=== PATIENT | male | born 1970 | race Caucasian/White ===

== ENCOUNTER 2021-06-07 20:07 | Emergency (ER) | payer SELFPAY ==
[2021-06-07] MEDS ORDERED: cefTRIAXone 2 GM in Sodium Chloride 0.9% 100 ML IV ONE (20:45)
[2021-06-07 20:52] LABS: BASE EXCESS ARTERIAL -10 mmol/L ((-2)-(+3)); BICARBONATE,ARTERIAL 19.4 mmol/L (22-26); O2 DELIVERY DEVICE NON REBR MASK; O2 SATURATION ARTERIAL 91 % (95-100); PCO2 ARTERIAL 55 mmHg (35-45); PO2 ARTERIAL 77 mmHg (70-100)
[2021-06-07 20:54] LABS: ALLEN TEST PERFORMED
--- NOTE | 2021-06-07 20:58 | CR ---
PROCEDURE INFORMATION: Exam: XR Chest Exam date and time: 06/07/2021 8:30 PM Age: 51 years old Clinical indication: Shortness of breath; Additional info: Hypoxia, prob covid TECHNIQUE: Imaging protocol: XR of the chest. Views: 1 view. COMPARISON: No relevant prior studies available. FINDINGS: Lungs: See "Soft tissues" finding. Pleural spaces: Unremarkable. No pleural effusion. No pneumothorax. Heart/Mediastinum: Unremarkable. No cardiomegaly. Bones/joints: Unremarkable. Soft tissues: Habitus and portable technique limit exam. Bilateral airspace opacities noted. Hypoventilatory exam. Potential mass in the right mid lung zone. IMPRESSION: Limited exam. Question mass in the right mid lung zone. Additional evidence of pneumonia. CT recommended.
[2021-06-07 21:06] LABS: ANION GAP 18.3 mEq/L (7-13); CHLORIDE,CL 94 mmol/L (98-107); SODIUM,NA 131 mmol/L (136-145)
[2021-06-07] MEDS ORDERED: Sodium Chloride 0.9% 1,000 ML IV ONE (21:13)
[2021-06-07] MEDS ORDERED: Dexamethasone 4 MG/ML SDV IVPUSH ONE (21:15)
[2021-06-07] MEDS ORDERED: Morphine 2 MG/ML SYRINGE IVPUSH ONE ×3 (21:20→22:18)
[2021-06-07] MEDS ORDERED: LORazepam 2 MG/ML SDV ONE (21:29)
[2021-06-07] MEDS ORDERED: LORazepam 2 MG/ML SDV IVPUSH ONE (21:31)
[2021-06-07 22:00] LABS: BASE EXCESS ARTERIAL -8 mmol/L ((-2)-(+3)); BICARBONATE,ARTERIAL 20.4 mmol/L (22-26); O2 DELIVERY DEVICE CPAP; O2 SATURATION ARTERIAL 96 % (95-100); PCO2 ARTERIAL 52 mmHg (35-45); PO2 ARTERIAL 77 mmHg (70-100)
[2021-06-07 22:01] LABS: ALLEN TEST PERFORMED
--- NOTE | 2021-06-07 23:14 | CR ---
PROCEDURE INFORMATION: Exam: XR Chest Exam date and time: 06/07/2021 10:57 PM Age: 51 years old Clinical indication: Other: Tube placement; Additional info: Post intub TECHNIQUE: Imaging protocol: XR of the chest. Views: 1 view. COMPARISON: CR Chest 1V Frontal 06/07/2021 8:30 PM FINDINGS: Tubes, catheters and devices: Rotation. Tip of the endotracheal tube appears to terminate at the level of the clavicles, though technique limits exam. Gastric suction tube noted, but tip is not seen due to technique. Lungs: Patchy bilateral airspace disease and hypoventilation. Heart/Mediastinum: Heart appears enlarged. IMPRESSION: Limited exam. Endotracheal tube appears to terminate in good position at the level of the clavicles.
--- NOTE | 2021-06-08 04:07 | EDM.PDOC ---
ED HPI GENERAL MEDICAL PROBLEM - General Chief Complaint: Respiratory Problem Stated Complaint: BY AMBULANCE Time Seen by Provider: 06/07/21 20:10 Source of Information: Reports: Patient History Limitations: Reports: No Limitations - History of Present Illness INITIAL COMMENTS - FREE TEXT/NARRATIVE: ED via [facility] with c/o SOB. EMS noted initial oxygen saturation 50% RA at home. Patient ill x 2 weeks worse past 2 days. decreased appetite cough, weakness today, in bathroom unable to get off toilet. went down to floor, No injury, no c/o pain. tested positive for COVID today. Saturation improved NRB 80's decreases upper 70's with movement or conversation. Denied chest pain, No abdominal pain, No change in hernia - Related Data Allergies Allergy/AdvReac Type Severity Reaction Status Date / Time No Known Allergies Allergy Verified 06/07/21 20:13 Social & Family History - Tobacco Use Tobacco Use Status *Q: Never Tobacco User - Caffeine Use Caffeine Use: Reports: Coffee - Recreational Drug Use Recreational Drug Use: No ED ROS GENERAL - Review of Systems Review Of Systems: Comprehensive ROS is negative, except as noted in HPI. ED EXAM, GENERAL - Physical Exam Exam: See Below Exam Limited By: Physical Impairment (grossly morbidly obese) General Appearance: Alert, Severe Distress, Obese Eye Exam: Bilateral Eye: EOMI Ears: Normal External Exam, Hearing Grossly Normal Nose: Normal Inspection Throat/Mouth: Other (dry membranes). No: Normal Voice (soft) Head: Atraumatic, Normocephalic Neck: Normal Inspection Respiratory/Chest: Respiratory Distress, Decreased Breath Sounds (bases), Rhonchi. No: No Respiratory Distress Cardiovascular: Normal Peripheral Pulses, Regular Rate, Rhythm, Tachycardia GI/Abdominal: Hernia (Massive hernia left mid abdomen). No: Tender Extremities: Pedal Edema, Slow Capillary Refill Neurological: Alert, Normal Cognition Psychiatric: Anxious Skin Exam: Warm, Cool, Erythema (lower abdominal pannis), Wound/Incision (left hernia with abrasion) #1 Interpretation EKG Date: 06/07/21 Time: 20:38 Rhythm: Other (sinus tach) P-Wave: Present QRS: Normal Comparison: NA - No Prior EKG Course - Vital Signs Last Recorded V/S: Last Vital Signs Temp 97.6 F 06/07/21 22:29 Pulse 106 H 06/07/21 22:29 Resp 32 H 06/07/21 22:29 BP 122/66 06/07/21 22:29 Pulse Ox 94 L 06/07/21 22:29 - Orders/Labs/Meds Orders: Active Orders 24 hr Category Date Time Status CULTURE BLOOD [BC] Stat Lab 06/07/21 20:23 Received CULTURE BLOOD [BC] Stat Lab 06/07/21 20:25 Received Blood Culture x2 Reflex Set [OM.PC] Stat Oth 06/07/21 19:57 Ordered Code Status [Resuscitation Status] Stat Resus Stat 06/07/21 20:16 Ordered Labs: Laboratory Tests 06/07/21 06/07/21 06/07/21 Range/Units 20:10 20:23 20:23 WBC 17.2 H (5.0-10.0) 10^3/uL RBC 6.99 H (4.6-6.2) 10^6/uL Hgb 18.2 H (14.0-18.0) g/dL Hct 59.8 H (40.0-54.0) % MCV 85.6 (80-100) fL MCH 26.0 L (27.0-34.0) pg MCHC 30.4 L (33.0-35.0) g/dL Plt Count 160 (150-450) 10^3/uL Neut % (Auto) 86.2 H (42.2-75.2) % Lymph % (Auto) 7.6 L (20.5-50.1) % [place] % (Auto) 6.0 (2-8) % Eos % (Auto) 0.1 L (1.0-3.0) % Baso % (Auto) 0.1 (0.0-1.0) % Add Manual Diff Yes Neutrophils % (Manual) 84 H (42-75) % Band Neutrophils % 3 % Lymphocytes % (Manual) 6 L (20-50) % Monocytes % (Manual) 6 (2-8) % Myelocytes % 1 Anisocytosis 1+ slight D-Dimer, Quantitative (0-400) ng/mL ABG pH (7.35-7.45) ABG pCO2 (35-45) mmHg ABG pO2 (70-100) mmHg ABG HCO3 (22-26) mmol/L ABG O2 Saturation (95-100) % ABG Base Excess ((-2)-(+3)) mmol/L Ruddy Test O2 Delivery Device Sodium 131 L (136-145) mmol/L Potassium 5.3 H (3.5-5.1) mmol/L Chloride 94 L (98-107) mmol/L Carbon Dioxide 24 (21-32) mmol/L Anion Gap 18.3 H (7-13) mEq/L BUN 30 H (7-18) mg/dL Creatinine 2.02 H (0.70-1.30) mg/dL Est Cr Clr Drug Dosing 46.42 mL/min Estimated GFR (MDRD) 35 BUN/Creatinine Ratio 14.9 (No establ ref range) Glucose 334 H (70-99) mg/dL Lactic Acid (0.4-2.0) mmol/L Calcium 8.0 L (8.5-10.1) mg/dL Total Bilirubin 1.7 H (0.2-1.0) mg/dL AST > 1000 H (15-37) U/L ALT 946 H (16-63) U/L Alkaline Phosphatase 211 H (46-116) U/L Troponin I High Sens 150 H* (<=76) pg/mL B-Natriuretic Peptide 1280 H (0-100) pg/ml Total Protein 7.8 (6.4-8.2) g/dL Albumin 2.7 L (3.4-5.0) g/dL Globulin 5.1 Albumin/Globulin Ratio 0.53 SARS-CoV-2 RNA (PENNY) Positive H (NEGATIVE) 06/07/21 06/07/21 06/07/21 Range/Units 20:23 20:23 20:51 WBC (5.0-10.0) 10^3/uL RBC (4.6-6.2) 10^6/uL Hgb (14.0-18.0) g/dL Hct (40.0-54.0) % MCV (80-100) fL MCH (27.0-34.0) pg MCHC (33.0-35.0) g/dL Plt Count (150-450) 10^3/uL Neut % (Auto) (42.2-75.2) % Lymph % (Auto) (20.5-50.1) % [place] % (Auto) (2-8) % Eos % (Auto) (1.0-3.0) % Baso % (Auto) (0.0-1.0) % Add Manual Diff Neutrophils % (Manual) (42-75) % Band Neutrophils % % Lymphocytes % (Manual) (20-50) % Monocytes % (Manual) (2-8) % Myelocytes % Anisocytosis D-Dimer, Quantitative 2050 H (0-400) ng/mL ABG pH 7.17 L* (7.35-7.45) ABG pCO2 55 H (35-45) mmHg ABG pO2 77 (70-100) mmHg ABG HCO3 19.4 L (22-26) mmol/L ABG O2 Saturation 91 L (95-100) % ABG Base Excess -10 L ((-2)-(+3)) mmol/L Ruddy Test Performed O2 Delivery Device Non rebr mask Sodium (136-145) mmol/L Potassium (3.5-5.1) mmol/L Chloride (98-107) mmol/L Carbon Dioxide (21-32) mmol/L Anion Gap (7-13) mEq/L BUN (7-18) mg/dL Creatinine (0.70-1.30) mg/dL Est Cr Clr Drug Dosing mL/min Estimated GFR (MDRD) BUN/Creatinine Ratio (No establ ref range) Glucose (70-99) mg/dL Lactic Acid 8.8 H* (0.4-2.0) mmol/L Calcium (8.5-10.1) mg/dL Total Bilirubin (0.2-1.0) mg/dL AST (15-37) U/L ALT (16-63) U/L Alkaline Phosphatase (46-116) U/L Troponin I High Sens (<=76) pg/mL B-Natriuretic Peptide (0-100) pg/ml Total Protein (6.4-8.2) g/dL Albumin (3.4-5.0) g/dL Globulin Albumin/Globulin Ratio SARS-CoV-2 RNA (PENNY) (NEGATIVE) 06/07/21 06/07/21 Range/Units 22:00 22:10 WBC (5.0-10.0) 10^3/uL RBC (4.6-6.2) 10^6/uL Hgb (14.0-18.0) g/dL Hct (40.0-54.0) % MCV (80-100) fL MCH (27.0-34.0) pg MCHC (33.0-35.0) g/dL Plt Count (150-450) 10^3/uL Neut % (Auto) (42.2-75.2) % Lymph % (Auto) (20.5-50.1) % [place] % (Auto) (2-8) % Eos % (Auto) (1.0-3.0) % Baso % (Auto) (0.0-1.0) % Add Manual Diff Neutrophils % (Manual) (42-75) % Band Neutrophils % % Lymphocytes % (Manual) (20-50) % Monocytes % (Manual) (2-8) % Myelocytes % Anisocytosis D-Dimer, Quantitative (0-400) ng/mL ABG pH 7.22 L (7.35-7.45) ABG pCO2 52 H (35-45) mmHg ABG pO2 77 (70-100) mmHg ABG HCO3 20.4 L (22-26) mmol/L ABG O2 Saturation 96 (95-100) % ABG Base Excess -8 L ((-2)-(+3)) mmol/L Ruddy Test Performed O2 Delivery Device Cpap Sodium (136-145) mmol/L Potassium (3.5-5.1) mmol/L Chloride (98-107) mmol/L Carbon Dioxide (21-32) mmol/L Anion Gap (7-13) mEq/L BUN (7-18) mg/dL Creatinine (0.70-1.30) mg/dL Est Cr Clr Drug Dosing mL/min Estimated GFR (MDRD) BUN/Creatinine Ratio (No establ ref range) Glucose (70-99) mg/dL Lactic Acid 2.9 H* (0.4-2.0) mmol/L Calcium (8.5-10.1) mg/dL Total Bilirubin (0.2-1.0) mg/dL AST (15-37) U/L ALT (16-63) U/L Alkaline Phosphatase (46-116) U/L Troponin I High Sens (<=76) pg/mL B-Natriuretic Peptide (0-100) pg/ml Total Protein (6.4-8.2) g/dL Albumin (3.4-5.0) g/dL Globulin Albumin/Globulin Ratio SARS-CoV-2 RNA (PENNY) (NEGATIVE) Meds: Medications Discontinued Medications Generic Name Dose Route Start Last Admin Trade Name Christina PRN Reason Stop Dose Admin Dexamethasone 10 mg 06/07/21 21:15 06/07/21 21:21 Dexamethasone 4 Mg/Ml Sdv IVPUSH 06/07/21 21:16 10 mg ONETIME ONE Administration Ceftriaxone Sodium 2 gm/ 100 mls @ 200 mls/hr 06/07/21 20:45 06/07/21 20:52 Sodium Chloride IV 06/07/21 21:14 200 mls/hr ONETIME ONE Administration Sodium Chloride 1,000 mls @ 999 mls/hr 06/07/21 21:13 06/07/21 21:17 Normal Saline IV 06/07/21 22:13 999 mls/hr .BOLUS ONE Administration Lorazepam 1 mg 06/07/21 21:31 06/07/21 21:32 Lorazepam 2 Mg/Ml Sdv IVPUSH 06/07/21 21:32 1 mg ONETIME ONE Administration Lorazepam Confirm 06/07/21 21:29 Lorazepam 2 Mg/Ml Sdv Administered 06/07/21 21:30 Dose 2 mg .ROUTE .STK-MED ONE Morphine Sulfate 2 mg 06/07/21 21:20 06/07/21 21:23 Morphine 2 Mg/Ml Syringe IVPUSH 06/07/21 21:21 2 mg ONETIME ONE Administration Morphine Sulfate 2 mg 06/07/21 22:16 06/07/21 22:19 Morphine 2 Mg/Ml Syringe IVPUSH 06/07/21 22:17 2 mg ONETIME ONE Administration Morphine Sulfate 2 mg 06/07/21 22:18 Morphine 2 Mg/Ml Syringe IVPUSH 06/07/21 22:19 ONETIME ONE - Re-Assessments/Exams Free Text/Narrative Re-Assessment/Exam: 06/08/21 05:31 [place] hotline regarding potential placement. Call back received. Bed availability [facility]. TC Dr Hanson. Request waiting one hour repeat lactic and gases and determine if patient stabilized and improved for transport. Prefers assessment with bipap and hold on intubation patient request intubation if status requires, Full Code. 2215 Call back, Lactic improved, ABG Ph marginal improvement. Oxygenation some improvement. HR 110'sa, on Bipap, tolerating with morphine and ativan. requesting patient be intubated for transport. [facility] [employer] [facility] here, Transport to [facility] via [facility]. Patient Critical. updated. prior to transfer Departure - Departure Time of Disposition: 23:15 Disposition: DC/Tfer to [facility] 02 Condition: Critical Clinical Impression: COVID, Hypoxia, Respiratory acidosis, Morbidly obese - Discharge Information *PRESCRIPTION DRUG MONITORING PROGRAM REVIEWED*: Not Applicable *COPY OF PRESCRIPTION DRUG MONITORING REPORT IN PATIENT [place]: Not Applicable Referrals: PCP,None [Primary Care Provider] - Forms: ED Department Discharge Sepsis Event Note (ED) - Evaluation Sepsis Screening Result: No Definite Risk - Focused Exam Vital Signs: Vital Signs Temp Pulse Resp BP Pulse Ox 06/07/21 22:29 97.6 F 106 H 32 H 122/66 94 L 06/07/21 20:09 99.1 F 119 H 29 H 124/108 H 88 L - My Orders Last 24 Hours: My Active Orders 06/07/21 19:57 Blood Culture x2 Reflex Set [OM.PC] Stat 06/07/21 20:16 Code Status [Resuscitation Status] Stat 06/07/21 20:23 CULTURE BLOOD [BC] Stat 06/07/21 20:25 CULTURE BLOOD [BC] Stat - Assessment/Plan Last 24 Hours: My Active Orders 06/07/21 19:57 Blood Culture x2 Reflex Set [OM.PC] Stat 06/07/21 20:16 Code Status [Resuscitation Status] Stat 06/07/21 20:23 CULTURE BLOOD [BC] Stat 06/07/21 20:25 CULTURE BLOOD [BC] Stat
== END 2021-06-07 23:18 ==
LOC: DL.ED 20:07
DX: U07.1 COVID-19 (principal); E87.2 Acidosis; E66.01 Morbid (severe) obesity due to excess calories; Z68.44 Body mass index [BMI] 60.0-69.9, adult
CPT/HCPCS: 31500; 36415; 36600; 71045; 80053; 82803; 83605; 83880; 84484; 85025; 85379; 87040; 87635; 93005; 96365; 96367; 96375; 96376; 99285; J0696; J1100; J2060; J2270; J7030; U0002